=== PATIENT | female | born 1970 | race Caucasian/White ===

== ENCOUNTER 2017-09-26 08:25 | Inpatient (IN) | payer MEDICARE | END 2017-09-27 13:35 | disposition home or self-care (01) | DRG 473 | LOC: D.SDCHOLD 08:25 → D.CVICU 15:50 | PROC: 0RG10A0 Fusion of Cervical Vertebral Joint with Interbody Fusion Device, Anterior Approach, Anterior Column, Open Approach (ICD-10-PCS; principal; 2017-09-26) | PROC: 0RB30ZZ Excision of Cervical Vertebral Disc, Open Approach (ICD-10-PCS; 2017-09-26) | PROC: 0RP104Z Removal of Internal Fixation Device from Cervical Vertebral Joint, Open Approach (ICD-10-PCS; 2017-09-26) | DX: M50.122 Cervical disc disorder at C5-C6 level with radiculopathy (principal); I10 Essential (primary) hypertension; J45.909 Unspecified asthma, uncomplicated; F17.200 Nicotine dependence, unspecified, uncomplicated; K21.9 Gastro-esophageal reflux disease without esophagitis; E66.9 Obesity, unspecified; Z68.37 Body mass index [BMI] 37.0-37.9, adult ==

== ENCOUNTER → 2018-02-25 09:32 | Outpatient (CLI) | payer MEDICARE ==
[2017-09-26 08:49] VITALS: BMI 38.0
[~2018-02-25 09:32] MED LIST: ASMANEX0.24 GM INH; KLONOPIN1 MG PO; LISINOPRIL5 MG PO; PERCOCET 10/3251 TA1 PO; TOPROL XL50 MG PO; VENTOLIN HFA18 GM INH; ZOLOFT100 MG PO
== END | disposition home or self-care (01) ==
LOC: D.MRI 02-16 15:30 → D.CT 02-16 15:30 → D.MRI 09:32
DX: M54.12 Radiculopathy, cervical region (principal)

== ENCOUNTER → 2018-04-27 09:39 | Outpatient (CLI) | payer MEDICARE ==
[2017-09-26 08:49] VITALS: BMI 38.0
== END | disposition home or self-care (01) ==
LOC: D.CT 03-23 09:30
DX: M54.12 Radiculopathy, cervical region (principal)

== ENCOUNTER 2018-05-07 07:40 | Day surgery (SDC) | payer MEDICARE ==
[~2018-05-07] VITALS: Ht 167.6 cm; Wt 109.1 kg
[2018-05-07] VITALS (9 sets, daily range): BP systolic 116–144; BP diastolic 67–78; Ht 167.6 cm; Wt 109.1 kg
--- NOTE | ~2018-05-07 | OP ---
PATIENT NAME: CHAIM ROMEO MEDICAL RECORD: [id number] :74 LOCATION:[facility] ADMISSION DATE: SURGEON: ALFRED DONOHUE MD DATE OF OPERATION: 05/07/2018 DATE OF SERVICE: 05/07/2018 PREOPERATIVE DIAGNOSIS: Left C7 radiculopathy secondary to a left C6-C7 foraminal stenosis. PROCEDURE: Left C6-C7 posterior cervical foraminotomy. SURGEON: Alfred Donohue MD DESCRIPTION AND TECHNIQUE: After induction of general endotracheal anesthesia, the patient was placed in Do head pins and rolled prone on chest and hip rolls. The neck was prepped and draped in usual sterile fashion. Fluoroscopic x-ray and spinal needle localized the C6-C7 interspace on the left side. After infiltration of 1:100,000 epinephrine and 1% lidocaine, a skin incision was carried out from the spinous process of C6-C7. Bovie cautery was used to dissect through the subcutaneous fat down to the fascia. The fascia was incised with Bovie cautery and then using a subperiosteal dissection technique, the spinous processes and lamina of C6 and C7 were exposed. The level was confirmed with fluoroscopic x-ray. Midas-Varghese drill and microscope was used to perform laminotomy, medial facetectomy and foraminotomy at C6-C7 on the left. Hypertrophied ligamentum flavum was removed with Cloward rongeurs. Following this, the nerve root and lateral dura was decompressed well. Meticulous hemostasis was maintained throughout the wound. The wound was irrigated with copious amounts of Ancef irrigant solution. The fascia was closed with 2-0 Vicryl suture, the subdermal layer was closed with 3-0 Vicryl sutures. Skin was closed with jennifer. A sterile dressing was applied to the wound. The patient was awakened in good condition and taken to recovery. All counts were reported as correct. Estimated blood loss was minimal. TRANSINT:[id number] Voice Confirmation ID: [id number] DOCUMENT ID: [id number] ALFRED DONOHUE MD at 0933 CC: [id number] DICTATION DATE: 05/07/18 1607 MARSH BUGGY OPERATOR: 05/07/18 1657 [facility] 05/08/18 [place] [address]
[2018-05-07 07:37] LABS: HEMATOCRIT 37.4 % (36.0-48.0); HEMOGLOBIN 12.1 g/dL (12-16); MCH 29.2 pg (26.0-34.0); MCHC 32.4 g/dL (31.0-37.0); MCV 90.3 fL (80.0-100.0); RBC 4.14 10x6/uL (4.00-5.40); RDW 16.3 % (11.5-14.5)
[2018-05-08] VITALS: BP 127/79
[2018-05-08 04:00] VITALS: BP 128/69
[2018-05-08 08:48] VITALS: BP 147/71
[2018-05-08 12:46] VITALS: BP 131/79
[2018-05-08] MEDS ORDERED: NORCO 10-325 TA1 TAB PO (14:51)
== END 2018-05-08 16:18 | disposition home or self-care (01) ==
LOC: D.MS 07:40 → D.OPS 07:40 → EDSTATUS 09:30 → D.MS 14:04 → D.OPS 05-08 16:18
PROVIDERS: Anesthesiology
DX: M48.02 Spinal stenosis, cervical region (principal); M54.12 Radiculopathy, cervical region; Z01.812 Encounter for preprocedural laboratory examination

== ENCOUNTER 2019-10-21 03:38 | Observation (INO) | payer MEDICARE, MEDICAID ==
[~2019-10-21] VITALS: Ht 152.4 cm; Wt 115.5 kg
[~2019-10-21 03:38] MED LIST changes: +NORCO 10-325 TA1 TAB PO
[2019-10-21] MEDS ORDERED: COZAAR100 MG PO (03:41)
[2019-10-21] MEDS ORDERED: CYCLOBENZAPRINE10 MG PO (03:43)
[2019-10-21 04:55] LABS: CKMB 0.6 U/L (0.0-3.6)
[2019-10-21 04:56] LABS: TROPONIN-I < 0.017 ng/mL (0.000-0.060)
[2019-10-21 05:37] VITALS: Ht 152.4 cm; Wt 115.5 kg
--- NOTE | 2019-10-21 07:15 | NUR ---
RECEIVED PT IN BED EYES CLOSED RESP UNLABORED SKIN W/D NAD NOTED
[2019-10-21 08:57] VITALS: BP 114/72
[2019-10-21] MEDS ORDERED: NORCO-7.51 TAB PO (11:14)
[2019-10-21 12:02] VITALS: BP 100/63; BP 130/65
[2019-10-21 15:10] LABS: ALBUMIN 3.5 g/dL (3.4-5.0); ALKALINE PHOSPHATASE 67 U/L (30-120); ALT (SGPT) 40 U/L (10-68); BILIRUBIN - TOTAL 0.37 mg/dL (0.2-1.3); CALC OSMOLALITY 269 mosm/kg (275-300); CALCIUM 8.1 mg/dL (8.5-10.1); CARBON DIOXIDE 26.7 mmol/L (21.0-32.0); CHLORIDE - SERUM 101 mmol/L (98-107); CREATININE - SERUM 0.8 mg/dL (0.6-1.3); GLUCOSE 112 mg/dL (74-106); HEMATOCRIT 36.2 % (36.0-48.0); HEMOGLOBIN 11.7 g/dL (12-16); LIPASE 113 U/L (73-393); MCH 29.3 pg (26.0-34.0); MCHC 32.3 g/dL (31.0-37.0); MCV 90.7 fL (80.0-100.0); MEAN PLATELET VOLUME 9.1 fL (7.4-10.4); POTASSIUM - SERUM 3.3 mmol/L (3.5-5.1); PROTEIN - SERUM 7.4 g/dL (6.4-8.2); RBC 3.99 10x6/uL (4.00-5.40); RDW 15.7 % (11.5-14.5); SODIUM 135 mmol/L (136-145); UREA NITROGEN 11 mg/dL (7-18); WBC 13.3 10x3/uL (4.8-10.8); eGFR NON AFRICAN AMERICAN 81 mL/min (90-120)
[2019-10-21 15:12] LABS: PLATELET COUNT 283 10x3/uL (130-400)
[2019-10-21 15:42] LABS: EOSINOPHILS 2 % (0-7); LYMPHOCYTES 17 % (15-50); MONOCYTES 3 % (2-11); NEUTROPHILS 78 % (40-80); PLATELET ESTIMATE NORMAL
[2019-10-21 17:07] VITALS: BP 108/73
[2019-10-21 20:00] VITALS: BP 125/80
[2019-10-22] VITALS: BP 113/66
[2019-10-22 04:00] VITALS: BP 115/66
--- NOTE | 2019-10-22 07:15 | NUR ---
RECEIVED PT AAOX4 RESP UNLABORED SKIN W/D COLOR WNL REQUEST PAIN MED AT THIS TIME 01/18
[2019-10-22 08:52] VITALS: BP 131/73
[2019-10-22] MEDS ORDERED: METOPROLOL TART50 MG PO (10:29)
--- NOTE | 2019-10-22 11:24 | NUR ---
NO FLU SHOT UPON ADMIT, WHEN QUESTIONED SHE REFUSED IT.
--- NOTE | 2019-10-22 13:15 | NUR ---
REVIEWED DISCHARGE INSTRUCTIONS PT STATES UNDERSTANDING COPY GIVEN DCD SALINE LOCK TO RFA AND LAC WITH IV CATHETERS INTACT SITES FREE OF REDNESS OR EDEMA
--- NOTE | 2019-10-22 14:00 | NUR ---
PT DISCHARGED HOME IN STABLE CONDITION WITH ALL PERSONAL BELONGINGS VIA W/C
--- NOTE | 2019-10-25 11:19 | ST ---
PATIENT:CHAIM ROMEO MEDICAL RECORD: [id number] SEX: F LOCATION:[facility] D211 ORDER #: ADMISSION DATE: 10/21/19 AGE OF PATIENT: 49 REFERRING PHYSICIAN: INTERPRETING PHYSICIAN: YUDITH FUENTES MD DATE OF SERVICE: 10/21/2019 PROCEDURE: Treadmill stress test. TECHNIQUE: Bassline ECG shows probable LVH. Exercised for 2 minute, Shaan protocol, maximum heart rate 125 beats per minute. Test terminated due to fatigue. No change of ischemia, marked shortness of breath, no dyspnea with exertion. No ST-T changes. IMPRESSION: Indeterminate treadmill. TRANSINT:[id number] Voice Confirmation ID: [id number] DOCUMENT ID: [id number] YUDITH FUENTES MD at 1119 CC: [id number] DICTATION DATE: 10/21/19 1557 YIELD ANALYST: 10/22/19 0726 [facility] IN 10/22/19 [id number] [place] [address]
== END 2019-10-22 14:00 | disposition home or self-care (01) ==
LOC: D.ER 03:38 → D.M2 05:00 → OBSVTIME 05:00 → D.M2 05:00
PROVIDERS: Emergency Medicine; ADMIT Internal Medicine Nephrology; ATTEND Internal Medicine Nephrology
DX: I20.9 Angina pectoris, unspecified (principal); I16.1 Hypertensive emergency; G89.29 Other chronic pain; K25.9 Gastric ulcer, unspecified as acute or chronic, without hemorrhage or perforation; J45.909 Unspecified asthma, uncomplicated; F41.9 Anxiety disorder, unspecified